=== PATIENT | female | born 1965 | race Caucasian/White ===

== ENCOUNTER → 2020-06-19 | Outpatient (CLI) | payer OTHER ==
[~2020-06-19] MED LIST: B12INJ IM; CENTRUM SILVER1 EAC5 PO; CYMBALTA30 MG PO; DESYREL150 MG PO; LEVOTHYROXINE150 MCG PO; MELATONIN10 M3 PO; MELOXICAM15 MG PO; OMEPRAZOLE40 MG PO; PAROXETINE HCL10 MG PO; TRAMADOL 50 MG50 MG PO; ZYRTEC10 M5 PO
== END ==
LOC: LAB 09:19
PROVIDERS: ATTEND Orthopaedic Surgery Sports Medicine
DX: Z01.812 Encounter for preprocedural laboratory examination (principal); Z20.822 Contact with and (suspected) exposure to COVID-19

== ENCOUNTER → 2020-06-24 | Day surgery (SDC) | payer OTHER ==
[~2020-06-24] VITALS: Ht 162.6 cm; Wt 117.9 kg
[2020-06-24 10:16] VITALS: BP 132/85
--- NOTE | 2020-06-24 13:07 | EKG ---
[facility] [address] [address] ELECTROCARDIOGRAM REPORT Name: NELLI PONCE Room #: REG [facility]#: [id number] Admission: 06/24/20 Attend Phys: Tony Marcelo MD Discharge: Date of : 65 Report #: [id number] [facility] Test Date: 2020-06-24 Test Time: 10:20:03 Pat Name: NELLI PONCE Department: Room: Gender: F [employer]: : 1965 Requested By: Tony Marcelo Order Number: [id number] MD: Jhoan Ford Measurements Intervals [place] Rate: 86 P: 67 MD: 153 QRS: -1 QRSD: 106 T: 26 QT: 381 QTc: 456 Interpretive Statements Sinus rhythm Low voltage, precordial leads RSR' in V1 or V2, right VCD or RVH No previous ECG available for comparison Electronically Signed On 06-24-2020 13:07:18 CDT by Jhoan Ford [email or web address] <ELECTRONICALLY SIGNED> By: Jhoan Ford MD, [facility] 06/24/20 1307 1020 1020 Jhoan Ford MD, FACC /EPI
--- NOTE | 2020-06-25 11:40 | O ---
[address] [address] OPERATIVE REPORT Name: NELLI PONCE Room #: REG [facility]#: [id number] Admission: 06/24/20 Attend Phys: Tony Marcelo MD Discharge: Date of : 65 Report #: [id number] THIS REPORT FOR: cc: FOSTER RIVAS MD Physician not on staff Tony Marcelo MD ~ DATE OF SERVICE: 06/24/2020 SERVICE: Orthopedics. FACILITY: [facility]. SURGEON: Tony Macrelo MD VIBRATION ENGINEER: Marah Ramsey NP. INDICATION FOR VIBRATION ENGINEER: Extremity positioning, suture management, arthroscope management, assistance with repair. PREOPERATIVE DIAGNOSES: 1. Work-related injury to right hip. 2. Right hip labral tear. 3. Right hip symptomatic femoroacetabular impingement. 4. Obesity (BMI = 46). POSTOPERATIVE DIAGNOSES: 1. Work-related injury to right hip. 2. Right hip labral tear. 3. Right hip symptomatic femoroacetabular impingement. 4. Obesity (BMI = 46). PROCEDURES: 1. Right hip arthroscopic labral repair. 2. Right hip arthroscopic Cam osteochondroplasty. 3. Right hip arthroscopic subspine decompression. COMPLICATIONS: None. DRAINS: None. SPECIMENS: None. ANESTHESIA: General with regional. FINDINGS: [address] [address] OPERATIVE REPORT Name: NELLI PONCE Room #: REG [facility]#: [id number] Admission: 06/24/20 Attend Phys: Tony Marcelo MD Discharge: Date of : 65 Report #: [id number] 1. Anterior labral tear with peripheral chondral wave sign, treated with [place] CinchLock suture anchor x 3. 2. Dense prominent anterior inferior iliac spine causing extraarticular subspine impingement treated with additional capsular tissue work and a bony decompression. 3. 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 4. Capsular repair with #2 Vicryl x 4. 5. Overall, healthy appearing articular cartilage. HISTORY: The patient who was involved in a work-related injury that resulted in right hip pain quite some time ago. We have been treating her initially conservatively with hopes that she would have improved, but she continued to have findings consistent with symptomatic femoroacetabular impingement as well as the symptomatic labral tear. She continued to be a good surgical candidate; however, she had issues with obesity and increased weight that needed physically difficult to execute surgical plan safely and effectively and so she engaged upon a weight loss program and really had slow success often with setbacks, but eventually was able to achieve a satisfactory amount of truncal weight loss such that I did feel that it was going to be safe to proceed with a goal of achieving an equivalent outcome to a nonobese patient. The risks, benefits, alternatives and indications for surgery were discussed with her in depth. Risks include but not limited to pain, bleeding, infection, injury to nerves or blood vessels, persistent pain despite surgical intervention, failure of any repairs, reconstruction, progression of any preexisting chondral injury, stiffness, need for further surgery as well as complications related to anesthesia up to including . Despite the risks, she wished to proceed. PROCEDURE IN DETAIL: After the right lower extremity was correctly identified in the preoperative holding area as the operative extremity, the patient was taken to the operating room where general anesthesia was induced without complication. She was padded appropriately. We brought C-arm in to identify the extended Cam deformity affecting the proximal femur and then proceeded to prep and drape the right lower extremity in the standard fashion. We utilized the [place] instrument to provide distraction in this case as this allowed for flattening of the size to the adiposity would not interfere with ability to successfully performing the hip arthroscopy. The right lower extremity was then prepped and draped in standard sterile fashion. A timeout procedure performed. Traction was applied to right lower extremity. Standard anterolateral viewing portal was established under fluoroscopic assistance and then the mid anterior portal was established under direct arthroscopic and fluoroscopic visualization. We then performed a transverse capsulotomy. There was synovitis was present, which will be the indication for continuous passive motion machine usage postoperatively in order to reduce the risk of scarring and adhesions as these can be reasons for reoperation in this patient population. [address] [address] OPERATIVE REPORT Name: NELLI PONCE Room #: REG [facility] M.R.#: [id number] Admission: 06/24/20 Attend Phys: Tony Marcelo MD Discharge: Date of : 65 Report #: [id number] The capsule was then reflected off the dorsal side of the labrum. The labrum itself had a partial thickness tear anteriorly and then fixated into a chondral wave sign more laterally, which was a component of her labral pathology related to the original injury. The subspine region was then dissected with the cautery and the shaver to identify the medial and lateral extent and then using C-arm for assistance, the subspine decompression was completed in the standard fashion. I then used the bur to abrade and decorticate the acetabular rim to create a fresh bleeding surface for labral repair and then I proceeded with placement of 2 [place] CinchLock suture anchors. The chondral labral junction was then gently debrided with the shaver and then we probed the soft tissues and I felt that there was still some instability and placed a third anchor between the two anchors that were present. This provided good stability of the acetabular labrum on the acetabular rim and then we tractioned and flexed the hip up to return attention towards the peripheral compartment. The Cam was exposed by extending the transverse capsulotomy down the neck in a T fashion and then a bur was used to perform a Cam osteoplasty in standard fashion. We removed the instruments, brought C-arm in, assessed the resection, identified some additional bone over the lateral shoulder that needed to be resected and placed the instruments back in the hip, completed the Cam osteoplasty and then debrided the bony debris, removed the instruments once more, brought C-arm in, assessed the resection. At this point, I was happy with the appearance of the Cam osteoplasty, placed the instruments back in the hip and then closed the capsulotomy with a total of four #2 Vicryl sutures removed the instruments. The portal sites were closed. Sterile dressing was applied. The patient was awakened from anesthesia and taken to recovery room in stable condition. There were no complications. All counts were correct. By utilizing the additional instrumentation to accommodate the increased soft tissue envelope and adiposity, we were able to handle the increased surgical complexity of her medical condition of obesity in order to have safe and successful execution of the surgical plan. <ELECTRONICALLY SIGNED> By: Tony Marcelo MD 06/25/20 1140 51 21 Tony Marcelo MD /[email or web address]
== END | disposition home or self-care (01) ==
LOC: OR 09:23
PROVIDERS: ATTEND Orthopaedic Surgery Sports Medicine
DX: S73.101A Unspecified sprain of right hip, initial encounter (principal); S79.911A Unspecified injury of right hip, initial encounter; M25.851 Other specified joint disorders, right hip; E03.9 Hypothyroidism, unspecified; F32.9 Major depressive disorder, single episode, unspecified; K21.9 Gastro-esophageal reflux disease without esophagitis; E66.9 Obesity, unspecified; Z98.890 Other specified postprocedural states; Z79.899 Other long term (current) drug therapy; Z68.42 Body mass index [BMI] 45.0-49.9, adult; Z90.49 Acquired absence of other specified parts of digestive tract; Y99.8 Other external cause status; X58.XXXA Exposure to other specified factors, initial encounter; Y93.89 Activity, other specified; Y92.89 Other specified places as the place of occurrence of the external cause
CPT/HCPCS: 50010; 50101; 50386; 51320; 51538; 56524; 56527; 57092; 57103; 58273; 58274; 58558; 58559; 58561; 58562; 58563; 58564; 58608; 58634; 58638; 58639; 58640; 62110; 62900; 70005